=== PATIENT | female | born 1990 | race Caucasian/White ===

== ENCOUNTER 2016-08-05 10:05 | Emergency (ER) | payer BC, OTHER ==
[~2016-08-05 10:05] MED LIST: IBUP600 PO; OXYC1SOL5 PO; PRENCAP6 PO
--- NOTE | 2016-08-05 11:09 | PD ---
HPI Chief Complaint back ache, nausea/vomiting, cramping abdominal pain Date Seen: August 05, 2016 Travel History International Travel<30 Days: No Contact w/Intl Traveler<30Days: No Known Affected Area: No History of Present Illness HPI This is a 26y/o at 30w5d who presented to the [facility] with reports of abdominal discomfort since 11pm, and nausea with 3 episodes of vomiting today. + back pain, denies vaginal bleeding, contractions or leakage of fluid with reports of active movements. She states she ate a bbq sandwhich last night, her ate the same thing and is fine. No sick contacts at home, but her daughter does go to daycare. care with Dr. Rome, complicated by: 1. Previous c/s, desires TOLAC 2.Varicella nonimmune Para: 1 : 2 History Past Medical History Medical History: Denies Significant Hx Obstetric History Obstetric History 10/2014 Primary c/s Female 7lb6oz, NFRHT at 10cm, nuchal times 3 Past Surgical History Surgical History: No Previous Surgery Family History Family History: Negative Social History Alcohol Use: No Tobacco Use: No Substance Abuse: No Allergies-Medications (Allergen,Severity, Reaction): Coded Allergies: No Known Allergies (Unverified , 10/30/14) Home Meds Active Scripts Oxycodone W/ Acetaminophen (Oxycodone/Acetaminophen 5-325 mg/5Ml)1 Tab Tab1 Tab PO Q4H PRN (PAIN SCALE 3 TO 5) #30 TAB Ref 0 Prov:Janes Russell MD 11/02/14 Ibuprofen (Motrin 600 Mg Tab)600 Mg Shu393 Mg PO Q6H PRN ( CRAMPING) # 30 TAB Ref 0 Prov:Erum Santos CNM VISUAL EDUCATOR 11/02/14 Reported Medications Mv & Min W/Fe Fumarat ( 1) Cap1 Cap PO 10/30/14 Review of Systems Except as stated in HPI: all other systems reviewed are Neg Physical Exam Narrative GENERAL: Well-nourished, well-developed patient. SKIN: Warm and dry. HEAD: Normocephalic and atraumatic. EYES: No scleral icterus. No injection or drainage. ENT: No nasal drainage noted. Mucous membranes pink. Airway patent. NECK: Supple, trachea midline. No JVD. CARDIOVASCULAR: Regular rate and rhythm without murmurs, gallops, or rubs. RESPIRATORY: Breath sounds equal bilaterally. No accessory muscle use. BREASTS: Bilateral exam showed no masses , no retractions, no nipple discharge. ABDOMEN/GI: Abdomen soft, non-tender, bowel sounds present, no rebound, no guarding Gravid to 30 weeks size Fundal Height: 32 GENITOURINARY: External Genitalia: VE deferred Uterine Contractions: + irritability on the monitor initially, then subsided FHT's: Category: 1, appropriate for gestational age, very active fetus EXTREMITIES: No cyanosis or edema. BACK: Nontender without obvious deformity. No CVA tenderness. NEUROLOGICAL: Awake and alert. Motor and sensory grossly within normal limits. Five out of 5 muscle strength in all muscle groups. Normal speech. Data Data Vital Signs Reviewed: Yes Orders Vital Signs (Adult) .ON ADMISSION (08/05/16 11:03) ^ Labor Status (08/05/16 11:03) Urinalysis - C+S If Indicated (08/05/16 11:03) ^ Non Stress Test (08/05/16 11:03) Labs Laboratory Tests Test 08/05/16 10:20 Urine Color YELLOW Urine Turbidity CLEAR Urine pH 8.0 Urine Specific [place] 1.018 Urine Protein TRACE mg/dL Urine Glucose (UA) NEG mg/dL Urine Ketones NEG mg/dL Urine Occult Blood NEG Urine Nitrite NEG Urine Bilirubin NEG Urine Urobilinogen LESS THAN 2.0 MG/DL Urine Leukocyte Esterase NEG Urine RBC LESS THAN 1 /hpf Urine WBC 1 /hpf Urine Squamous Epithelial 2 /hpf Cells Urine Bacteria RARE /hpf Urine Mucus FEW /lpf Microscopic Urinalysis Comment CULT NOT INDICATED MDM Medical Record Reviewed: Yes Interpretation(s) 26y/o at 30w5d, with nausea/vomiting. -reassuring status -no evidence of PTL Plan -Pt tolerated water, crackers and peanut butter -felt some nausea, given Zofran 4mg ODT -after Zofran was able to tolerate apple juice -Rx for Zofran, d/c home with precautions: PTL, PHILLY diet. Diagnosis Diagnosis: Primary Impression: Nausea and vomiting during Disposition: DISCHARGE HOME Scripts Ondansetron (Zofran)4 Mg Tab4 Mg PO Q6HR PRN (NAUSEA OR VOMITING) #30 TAB Ref 1 Prov:Kalidas,Charmaine MD 08/05/16 Patient Instructions: Diet (GEN) Charmaine Rosario MD August 05, 2016 11:08
[2016-08-05 11:27] LABS: BACTERIA, URINE RARE /hpf; BLOOD, URINE NEG (NEG); GLUCOSE,URINE NEG (NEG); KETONE, URINE NEG (NEG); MUCUS URINE FEW /lpf (OCC); NITRITE,URINE NEG (NEG); SQUAMOUS EPITHELIAL CELL URINE 2 /hpf (0-5); URINE COLOR YELLOW (YELLW/STRAW)
[2016-08-05 11:32] LABS: COMMENT (UR) CULT NOT INDICATED; CULTURE IF INDICATED CULT NOT INDICATED
[2016-08-05] MEDS ORDERED: ONDANSETRON ODT 4 MG TAB PO ONE (12:00)
[2016-08-05] MEDS ORDERED: ZOFR4TAB PO (12:37)
== END 2016-08-05 13:11 | disposition home or self-care (01) ==
LOC: HOBED 10:05
DX: O21.0 Mild hyperemesis gravidarum (principal); Z3A.30 30 weeks gestation of pregnancy
CPT/HCPCS: 81001; 99284

== ENCOUNTER 2016-10-10 08:10 | Inpatient (IN) | payer BC ==
[2016-10-10] VITALS (40 sets, daily range): BP systolic 74–143; BP diastolic 35–89; PULSE 70–111; RESP 16–20; TEMP 97.4–98.9; O2SAT 99–100
[~2016-10-10 08:10] MED LIST changes: +ZOFR4TAB PO
[2016-10-10] MEDS ORDERED: LACTATED RINGER'S 1000 ML INJ 1,000 ML IV PRN (08:54)
--- NOTE | 2016-10-10 08:54 | HHI.HP ---
HPI Chief Complaint Contractions Date Seen: Oct 10, 2016 Travel History International Travel<30 Days: No Contact w/Intl Traveler<30Days: No Known Affected Area: No History of Present Illness HPI Patient 26-year-old white female previous now at 40 weeks gestation complains of contractions and desires delivery if possible. She has no leakage of fluid or bleeding. Contractions are regular every 2-3 minutes eyes she describes them as painful heart rate tracing is reactive. Patient sees Dr. Rome at [facility] for care Para: 1 : 2 History Obstetric History Obstetric History 1 for distress Past Surgical History Narrative Surgical Social History Alcohol Use: No Tobacco Use: No Substance Abuse: No Allergies-Medications (Allergen,Severity, Reaction): Coded Allergies: No Known Allergies (Unverified , 10/30/14) Home Meds Active Scripts Ondansetron (Zofran)4 Mg Tab4 Mg PO Q6HR PRN (NAUSEA OR VOMITING) #30 TAB Ref 1 Prov:Charmaine Rosario MD 08/05/16 Oxycodone W/ Acetaminophen (Oxycodone/Acetaminophen 5-325 mg/5Ml)1 Tab Tab1 Tab PO Q4H PRN (PAIN SCALE 3 TO 5) #30 TAB Ref 0 Prov:Janes Russell MD 11/02/14 Ibuprofen (Motrin 600 Mg Tab)600 Mg Ing314 Mg PO Q6H PRN ( CRAMPING) # 30 TAB Ref 0 Prov:Erum Santos CNM TOOL DISTRIBUTOR 11/02/14 Reported Medications Mv & Min W/Fe Fumarat ( 1) Cap1 Cap PO 10/30/14 Review of Systems General / Constitutional: No: Fever, Weight Gain, Chills, Other Eyes: No: Diploplia, Blurred Vision, Visual changes, Pain, Photophobia HENT: No: Headaches, Vertigo, Lightheadedness Cardiovascular: No: Irregular Rhythm, Chest Pain or Discomfort, Palpitations, Tachycardia, Syncope, Varicosities, Edema, Cyanosis Respiratory: No: Cough, Short of Breath, Other Gastrointestinal: No: Nausea, Vomiting, Diarrhea Genitourinary: No: Decreased Urinary Output, Oliguria Musculoskeletal: No: Limited ROM, Weakness, Cramping, Edema, Pain Skin: No Rash, No Itching, No Dryness, No Lumps, No Change in Pigmentation, No Change in Nails, No Alopecia, No Lesions Neurologic: No: Weakness, Dizziness, Syncope, Focal Abnormalities, Coordination Problem, Headache, Slurred Speech, Seizures Psychiatric: No: Depression, Suicidal Ideations, Homicidal Ideation Endocrine: No: Heat Intolerance, Cold Intolerance, Polydipsia, Polyuria, Other Physical Exam Vital Signs Date Time Temp Pulse Resp B/P Pulse Ox O2 Delivery O2 Flow Rate FiO2 10/10/16 08:31 98.9 20 10/10/16 08:31 95 127/78 Narrative GENERAL: Well-nourished, well-developed patient. SKIN: Warm and dry. HEAD: Normocephalic and atraumatic. EYES: No scleral icterus. No injection or drainage. ENT: No nasal drainage noted. Mucous membranes pink. Airway patent. NECK: Supple, trachea midline. No JVD. CARDIOVASCULAR: Regular rate and rhythm without murmurs, gallops, or rubs. RESPIRATORY: Breath sounds equal bilaterally. No accessory muscle use. BREASTS: Bilateral exam showed no masses , no retractions, no nipple discharge. ABDOMEN/GI: Abdomen soft, non-tender, bowel sounds present, no rebound, no guarding Gravid to [-40] weeks size Fundal Height: [40-] GENITOURINARY: External Genitalia: intact and normal in appearance BUS glands: [-] Cervix: [-] Dilatation: [4-] Effacement: [60-] Station: [-3] Presentation: [-vtx] Membranes: [intact ] Uterine Contractions: [q 2 min-] FHT's: Category: [1-] Baseline: [-133] Reactive: [-yes] Variability: [-mod] Decels: [-none] EXTREMITIES: No cyanosis or edema. BACK: Nontender without obvious deformity. No CVA tenderness. NEUROLOGICAL: Awake and alert. Motor and sensory grossly within normal limits. Five out of 5 muscle strength in all muscle groups. Normal speech. Data Data Orders Vital Signs (Adult) .ON ADMISSION (10/10/16 08:30) ^ Labor Status (10/10/16 08:30) ^ Non Stress Test (10/10/16 08:30) ^ Hydration (10/10/16 08:30) Assessment/Plan Assessment and Plan Patient is a 26-year-old white female previous now at 40 weeks gestation presents complaining of contractions. Patient denies bleeding or ruptured membranes. Baby is active. heart rate tracing is reactive. Contractions every 2 minutes. Patient's cervix is 4 cm 60% and -3 vertex and she states that when she was checked recently she was 3 cm. Patient desires vaginal after she understands risk and benefits that procedure was considered safe the uterine rupture rate is less than 1%. Plan to admit patient for labor management will notify Dr. Latricia Byrd,Jose C Rebolledo II, MD Oct 10, 2016 08:54
[2016-10-10] MEDS ORDERED: LIDOCAINE HCL 1% 50 ML VIAL I-DERMAL PRN (09:00)
[2016-10-10] MEDS ORDERED: SODIUM CHLORID 0.9% 500 ML INJ 500 ML IV PRN (09:00)
[2016-10-10] MEDS ORDERED: MINERAL OIL 10 ML VIAL TOPICAL PRN (09:00)
[2016-10-10] MEDS ORDERED: LIDOCAINE HCL 1% 50 ML VIAL INFIL PRN (09:00)
[2016-10-10] MEDS ORDERED: OXYTOCIN 30 UNITS-500ML PREMIX 500 ML IV ONE ×2 (09:00→14:45)
[2016-10-10] MEDS ORDERED: CITRIC ACID-SODIUM CITRATE LIQ 30 ML UDC PO SCH (09:00)
[2016-10-10] MEDS ORDERED: SODIUM CHLOR 0.9% 1000 ML INJ 1,000 ML IV PRN (09:14)
[2016-10-10] MEDS ORDERED: LACTATED RINGER'S 1000 ML INJ 1,000 ML IV SCH ×2 (09:30→19:33)
[2016-10-10 09:32] LABS: AUTOMATED NEUTROPHIL # 8.7 TH/MM3 (1.8-7.7); BASOPHIL % 0.3 % (0.0-2.0); EOSINOPHIL % 0.3 % (0.0-4.0); HEMATOCRIT 38.6 % (35.0-46.0); HEMO FLAGS DIFF FINAL; LYMPHOCYTE # 1.4 TH/MM3 (1.0-4.8); MEAN CELL VOLUME 83.5 FL (80.0-100.0); MEAN CORPUSCULAR HEMOGLOBIN 28.8 PG (27.0-34.0); MEAN CORPUSCULAR HGB CONC 34.5 % (32.0-36.0); MONO % 5.9 % (0.0-8.0); NEUT % 80.5 % (16.0-70.0); PLATELET COUNT 154 TH/MM3 (150-450); RED BLOOD COUNT 4.63 MIL/MM3 (4.00-5.30); RED CELL DISTRIBUTION WIDTH 13.5 % (11.6-17.2); WHITE BLOOD COUNT 10.8 TH/MM3 (4.0-11.0)
[2016-10-10 09:35] LABS: BLOOD, URINE NEG (NEG); GLUCOSE,URINE NEG (NEG); KETONE, URINE NEG (NEG); NITRITE,URINE NEG (NEG); PH, URINE 7.5 (5.0-8.5); SQUAMOUS EPITHELIAL CELL URINE 1 /hpf (0-5); URINE COLOR YELLOW (YELLW/STRAW)
[2016-10-10 09:38] LABS: COMMENT (UR) CULT NOT INDICATED; CULTURE IF INDICATED CULT NOT INDICATED
[2016-10-10] MEDS ORDERED: PENICILLIN G POTASSIUM INJ 5,000,000 UNITS in SODIUM CHLORIDE 0.9% INJ 100 ML IV ONE (10:30)
[2016-10-10] MEDS ORDERED: OXYTOCIN 30 UNITS/NS 500ML PREMIX IV SCH (11:00)
[2016-10-10] MEDS ORDERED: fentaNYL 2MCG-BUPIV 0.125% INJ 100 ML ONE (11:28)
--- NOTE | 2016-10-10 11:57 | PD.LABORPN ---
Subjective Subjective feeling pressure & contractions q3-4 min, requesting epidural Objective Vital Signs Vital Signs Date Time Temp Pulse Resp B/P Pulse Ox O2 Delivery O2 Flow Rate FiO2 10/10/16 11:33 97.8 18 10/10/16 11:16 77 129/71 10/10/16 11:00 73 128/78 10/10/16 10:45 80 120/77 10/10/16 10:40 74 121/85 10/10/16 10:01 77 135/89 10/10/16 08:31 98.9 20 10/10/16 08:31 95 127/78 Objective Pelvic Exam: Cervix: [mid] Dilatation: [6] Effacement: [90] Station: [-2 to -3] Presentation: [vtx] Membranes:AROM'd clear this check, IUPC placed Uterine Contractions: [q2-3 min] FHT's: Category: [I] Baseline: [14s-150s] Reactive: [y] Variability: [y] Decels: [n] Assessment/Plan Problem List: (1) Encounter for trial of labor (2) Term Assessment and Plan 26 yo at 40w1d admit for labor, pt desires trial of labor, h/o for distress 1) TOLAC: r/b/a d/w pt, consents signed, aware of risk of ; AROM'd this check, clear, IUPC placed, pitocin at 2, continued to augment as needed, get epidural as desired 2) GBS + on PCN 3) h/o CD for distress 4) status: vtx, female, EFW 8-8.5Kayla Dodd MD Oct 10, 2016 11:57
[2016-10-10] MEDS ORDERED: TERBUTALINE INJ 1 MG/ML AMP ONE (13:22)
[2016-10-10] MEDS ORDERED: OXYTOCIN 10 UNIT/ML AMP ONE (13:27)
[2016-10-10] MEDS ORDERED: ceFAZolin INJ 1,000 MG VIAL ONE (13:40)
[2016-10-10 14:16] LABS: BLOOD GAS BASE EXCESS -1.6 mmol/L (-2-2); BLOOD GAS O2 HGB SATURATION 21 % (90-100); CORD BLOOD GAS HCO3 24 mmol/L (21-29); CORD BLOOD GAS PCO2 55 mmHG (34-78); CORD BLOOD GAS PH 7.27 (7.14-7.42); CORD BLOOD GAS PO2 16 mmHG (3.0-40.0); DRAW SITE CORD BLOOD; STAT YES
--- NOTE | 2016-10-10 14:37 | PD.OB.DELI ---
Procedure Note Section Procedure Pre Op Diagnosis: (1) Non-reassuring heart rate or rhythm affecting management of mother (2) Encounter for trial of labor (3) Term Post Op Diagnosis: (1) Non-reassuring heart rate or rhythm affecting management of mother (2) Encounter for trial of labor (3) Term (4) S/P repeat low transverse Performed by Kayla Rome MD Head Turbine Operator Surgeon: King Livingston MD Procedure: Repeat Low Transverse Sec Indication for delivery: Nonreassuring heart tracing Informed consent obtained: For anesthesia, For procedure Confirmed correct: Patient, Procedure, Site, Time-out taken Anesthesia: Epidural Medication prior to procedure: As documented in eMAR Monitoring during procedure: Blood pressure monitoring, ekg monitor, Pulse oximetry Urinary catheter: ml urine output (700), Other (was already in place as part of the labor process) Sterile preparation: Duraprep, In usual fashion, With drapes to expose affected area Position: Supine with wedge to right side Operative Features Skin Incision: Pfannenstiel Uterine Incision: Low transverse w/knife / scissors Membranes Ruptured: Previously, Appearance of fluid (clear) Presentation: Vertex Delivery of : Uneventful : Female One Minute : 9 Five Minute : 9 Weight: 8#5oz Status of : Viable, Cord blood, Nursery present Placenta delivered: Intact Medications: Antibiotics (preop Ancef 2g) Estimated blood loss: 500 mL Procedure tolerated: Well Maternal Condition: Stable Condition: Stable Procedure in detail see dictated op note for full details Kayla Rome MD Oct 10, 2016 14:37
[2016-10-10] MEDS ORDERED: MORPHINE SULFATE PF 10 MG/10 ML VIAL ONE (14:41)
[2016-10-10] MEDS ORDERED: oxyCODONE/ACETAMINOPHEN 5 MG/325 MG TAB PO PRN ×2 (14:45)
[2016-10-10] MEDS ORDERED: ACETAMINOPHEN 325 MG TAB PO PRN (14:45)
[2016-10-10] MEDS ORDERED: SIMETHICONE 80 MG CHEWABLE TAB PO PRN (14:45)
[2016-10-10] MEDS ORDERED: SODIUM CHLORIDE 0.9% FLUSH 10 ML FLUSH IV FLUSH PRN (14:45)
[2016-10-10] MEDS ORDERED: ONDANSETRON HCL 4 MG/2 ML VIAL IV PUSH PRN (14:45)
[2016-10-10] MEDS ORDERED: SODIUM CHLORIDE 0.9% FLUSH 10 ML FLUSH IV FLUSH SCH (14:45)
[2016-10-10] MEDS ORDERED: ZOLPIDEM TARTRATE 5 MG TAB PO PRN (14:45)
[2016-10-10] MEDS: ACETAMINOPHEN 1000 MG/100 ML VIAL IV ONE ×2 (14:45→16:45)
[2016-10-10] MEDS ORDERED: KETOROLAC TROMETHAMINE 60 MG/2 ML (IM) VIAL IM PRN (14:45)
--- NOTE | 2016-10-10 14:46 | PD ---
History of Present Illness Date Seen: Oct 10, 2016 Time Seen: 13:20 History of Present Illness called to see patient for FHR deceleration. Pt attempting TOLAC. epidural in place. when I arrived to room, nurses had patient in knee/chest position, O2 face mask on. Pitocin was discontinued. Cervix 6-7 cm by RN exam. I ordered terbutaline 0.25 mg SQ x 1. FHR baseline 125 with good variability. FHR down to 60s x 3 minutes, trended up to 90s-100s x [address] Rome notified, and decision made to proceed with repeat delivery. I escorted patient to OR to begin while Dr. Rome en route. King Livingston MD Oct 10, 2016 14:46
[2016-10-10] MEDS ORDERED: KETOROLAC TROMETHAMINE 30 MG/ML (IVP) VIAL ONE (14:58)
[2016-10-10] MEDS ORDERED: PENICILLIN G POTASSIUM INJ 2,500,000 UNITS in SODIUM CHLORIDE 0.9% INJ 100 ML IV SCH (15:00)
[2016-10-10] MEDS ORDERED: ACETAMINOPHEN 1000 MG/100 ML VIAL IV ONE (16:35)
[2016-10-10] MEDS ORDERED: EPIDURAL-DIPHENHYDRAMINE HCL 50 MG CAP PO PRN (19:15)
[2016-10-10] MEDS ORDERED: EPIDURAL-NO SYSTEMIC NARCOTICS PRN (19:15)
[2016-10-10] MEDS ORDERED: EPIDURAL-DO NOT ADMINISTER ANTICOAGULANTS PRN (19:15)
[2016-10-10] MEDS ORDERED: EPIDURAL-NALOXONE HCL 0.4 MG/ML AMP IV PRN (19:15)
[2016-10-10] MEDS ORDERED: EPIDURAL-DIPHENHYDRAMINE HCL 50 MG/ML VIAL IV PUSH PRN (19:15)
[2016-10-11 00:34] VITALS: BP 121/79; PULSE 80; RESP 18; TEMP 98.5
[2016-10-11] MEDS ORDERED: OXYTOCIN 30 UNITS-500ML PREMIX 500 ML IV PRN (00:45)
[2016-10-11 04:10] VITALS: BP 122/80; PULSE 74; RESP 18; TEMP 98.4
[2016-10-11 05:57] LABS: BASOPHIL % 0.2 % (0.0-2.0); HEMATOCRIT 33.9 % (35.0-46.0); HEMO FLAGS DIFF FINAL; LYMPH % 8.5 % (9.0-44.0); LYMPHOCYTE # 1.2 TH/MM3 (1.0-4.8); MEAN CELL VOLUME 84.3 FL (80.0-100.0); MEAN CORPUSCULAR HEMOGLOBIN 28.5 PG (27.0-34.0); MEAN CORPUSCULAR HGB CONC 33.8 % (32.0-36.0); MONO % 5.3 % (0.0-8.0); PLATELET COUNT 146 TH/MM3 (150-450); RED BLOOD COUNT 4.02 MIL/MM3 (4.00-5.30); RED CELL DISTRIBUTION WIDTH 13.7 % (11.6-17.2); WHITE BLOOD COUNT 13.9 TH/MM3 (4.0-11.0)
[2016-10-11] MEDS: IBUPROFEN 600 MG TAB PO PRN ×3 (06:03→18:33)
[2016-10-11] MEDS: DOCUSATE SODIUM 50 MG/SENNA 8.6 MG TAB PO PRN (06:03)
[2016-10-11 08:00] VITALS: BP 113/69; PULSE 76; RESP 16; TEMP 98.1
[2016-10-11 12:00] VITALS: BP 112/66; PULSE 80; RESP 16; TEMP 97.8
--- NOTE | 2016-10-11 13:15 | HHI.OB ---
Subjective Post Operative Day: 1 Remarks doing well, has voided, passing flatus. carlene po. pain well controlled. Objective Vitals/I&O Vital Signs Date Time Temp Pulse Resp B/P Pulse Ox O2 Delivery O2 Flow Rate FiO2 10/11/16 12:00 97.8 10/11/16 12:00 80 16 112/66 10/11/16 08:00 98.1 76 16 113/69 10/11/16 04:10 98.4 10/11/16 04:10 74 18 122/80 10/11/16 00:34 98.5 10/11/16 00:34 80 18 121/79 10/10/16 19:50 97.6 16 10/10/16 19:50 76 124/75 10/10/16 16:47 18 10/10/16 16:13 118/82 10/10/16 16:13 97.4 79 18 10/10/16 15:35 97.9 10/10/16 15:30 112/64 10/10/16 15:30 83 16 99 10/10/16 15:23 81 109/58 99 10/10/16 15:23 16 10/10/16 15:09 98 16 109/55 100 10/10/16 14:54 19 100 10/10/16 14:54 86 108/53 10/10/16 14:54 16 10/10/16 14:42 97.6 86 16 115/57 100 10/10/16 13:25 92 10/10/16 13:20 91 142/65 10/10/16 13:20 98 10/10/16 13:15 77 10/10/16 13:15 77 130/69 Result Diagram: 10/11/16 0508 Objective Remarks GENERAL: Well-nourished, well-developed patient. CARDIOVASCULAR: Regular rate and rhythm without murmurs, gallops, or rubs. RESPIRATORY: Breath sounds equal bilaterally. No accessory muscle use. ABDOMEN/GI: Abdomen soft, non-tender, bowel sounds present. Incision: Clean, dry and intact. Fundus: Firm, non-tender at umbilicus. GENITOURINARY: Light to moderate bleeding. EXTREMITIES: No cyanosis or edema, non-tender, without signs of DVT. Medications and IVs Current Medications Medications (Trade) Dose Ordered Sig/Jennyfer Route Start Time Stop Time Status Last Admin (Lr 1000 ml Inj) 1,000 ml @ 100 mls/hr Q10H IV 10/10/16 19:33 10/11/16 15:32 10/11/16 04:05 (NS Flush) 2 ml BID IV FLUSH 10/10/16 14:45 (NS Flush) 2 ml UNSCH PRN IV FLUSH 10/10/16 14:45 (Mylicon Chew) 80 mg QID PRN PO 10/10/16 14:45 (Tylenol) 650 mg Q6H PRN PO 10/10/16 14:45 (Motrin) 600 mg Q6H PRN PO 10/10/16 14:45 10/11/16 12:24 (Toradol Inj) 30 mg Q6H PRN IM 10/10/16 14:45 10/11/16 14:44 10/10/16 15:00 (Percocet 5-325 Mg) 1 tab Q4H PRN PO 10/10/16 14:45 (Percocet 5-325 Mg) 2 tab Q4H PRN PO 10/10/16 14:45 (Torie-Colace) 2 tab Q12H PRN PO 10/10/16 14:45 10/11/16 06:03 (Ambien) 5 mg HS PRN PO 10/10/16 14:45 (M-M-R Ii Inj) 0.5 ml ONCE ONCE SQ 10/11/16 16:00 10/11/16 16:01 (Boostrix Inj) 0.5 ml ONCE ONCE IM 10/11/16 16:00 10/11/16 16:01 (Zofran Inj) 4 mg Q6H PRN IV PUSH 10/10/16 14:45 Miscellaneous Information NO SYSTEMIC NARCOTICS TO BE GIVEN FO... UNSCH PRN .XX 10/10/16 19:15 10/11/16 19:14 (Narcan Inj) 0.4 mg UNSCH PRN IV 10/10/16 19:15 10/11/16 19:14 (Benadryl Inj) 25 mg Q6H PRN IV PUSH 10/10/16 19:15 10/11/16 19:14 (Benadryl) 50 mg Q6H PRN PO 10/10/16 19:15 10/11/16 19:14 Miscellaneous Information ALL NURSING DEPARTMENTS UNSCH PRN .XX 10/10/16 19:15 10/11/16 19:14 Assessment/Plan Problem List: (1) Encounter for trial of labor (2) Term Assessment and Plan Patient is a 26-year-old white female s/p repeat at 40 weeks POD 1 doing well, cont routine care Genesis Abdalla MD Oct 11, 2016 13:15
--- NOTE | 2016-10-11 15:30 | MP ---
cc: FAINA WILLIAMSON M.D. DATE OF SURGERY: 10/10/2016. PREOPERATIVE DIAGNOSIS: 1. Intrauterine of 40 weeks and 1 day. 2. Spontaneous labor. 3. Desired trial of labor after . 4. Non-reassuring heart tones. POSTOPERATIVE DIAGNOSIS: 1. Intrauterine of 40 weeks and 1 day. 2. Spontaneous labor. 3. Desired trial of labor after . 4. Non-reassuring heart tones. 5. Postoperative day number zero. OPERATIVE PROCEDURE PERFORMED: Repeat low transverse . SURGEON: Faina Williamson MD. PIPE TESTING TECHNICIAN SURGEON: nAna Livingston MD. TYPE OF ANESTHESIA: Epidural. ESTIMATED BLOOD LOSS: 500 mL. IV FLUID REPLACEMENT: 1200 mL. URINE OUTPUT: 700 mL of clear urine draining in the Bautista bag at the end of the procedure. PROPHYLAXIS: Ancef 2 grams was given preoperatively. The patient had been on IV penicillin due to GBS positive status during labor. SCDs were also on and functioning throughout the entire case. INTRAOPERATIVE FINDINGS: A vigorous viable female with Apgars of 9 and 9 and weight of 8 pounds, 5 ounces. The infant was in the vertex position. Normal uterus, fallopian tubes and ovaries. Minimal scar tissue from previous . INDICATIONS FOR THE PROCEDURE: Eliza Krishna is a 26-year-old 2 now para 2-0-0-2 who has been seen and cared for throughout her with the only complication is a history of a delivery. The patient desired a trial of labor. She came in in active labor and as was augmented as needed on the morning of the October 10 at around 6-7 cm the patient had bradycardia. Pitocin was turned off. Oxygen was administered. The patient was repositioned and terbutaline was administered. heart tones slowly recovered but continued to have persistent decelerations and bradycardia despite interventions. Due to remote from delivery and non-reassuring heart tones, decision was made for repeat . DESCRIPTION OF THE PROCEDURE IN DETAIL: After reviewing the informed consent, the patient was taken to the operating suite where a time-out was performed to identify the patient, planned procedure and any known allergies to drugs or drug products. The patient was then placed in dorsal supine position as epidural was already in place as part of the labor process. The abdomen and perineum were then prepped and draped in normal sterile fashion. Bautista catheter was also already in place as part of labor process. A Pfannenstiel type skin incision was made with a scalpel and carried down to the underlying layer of fascia with the Bovie. Fascia was incised in midline. The incision was extended laterally with sharp dissection using Darnell scissors. Superior aspect of the fascial incision was elevated with Brennon clamps and rectus muscles dissected off sharply with Darnell scissors. Kochers were then moved inferiorly on the fascia and rectus muscles were again dissected off sharply. Rectus muscles were then in the midline. Peritoneum was identified and entered sharply with Metzenbaum scissors. Incision was extended superiorly and inferiorly with good visualization of intra-abdominal contents. Bladder blade was placed. A bladder flap was made. A low transverse uterine incision was made with a scalpel. Amniotic sac had already been ruptured with clear fluid noted during labor process. The 's head was grasped, elevated, flexed out through the incision. The rest of the body easily delivered and infant was immediately crying upon delivery. Cord was doubly clamped and cut. Cord segment and cord blood sample were taken. The baby was handed off to the awaiting nursery staff. The placenta was then delivered using gentle cord traction and fundal massage. The uterus was then exteriorized and cleared of all clots and debris with sterile moist lap sponges. Hysterotomy was repaired in a double layer using #1 chromic, first in a running locked layer then in an imbricating fashion. Posterior cul-de-sac was then irrigated copiously with warm sterile saline. Uterus was returned to the abdomen. Gutters were irrigated as well. Excellent hemostasis was noted at the repaired hysterotomy. Peritoneum was then closed in a running layer with 2-0 chromic. Fascia was closed in running layer with #1 Vicryl. Subcutaneous tissue was irrigated and hemostasis was ensured with the Bovie. A series of interrupted sutures using 2-0 chromic were used to close the subcutaneous space. Skin was closed in subcuticular fashion using 4-0 Monocryl. Skin was cleaned and dried. Steri-Strips were placed as was a pressure dressing. The procedure was concluded at this point. The patient tolerated the procedure well without complication. DISPOSITION: The patient's estimated length of stay is two to three postoperative days. Infant is nursery status. MD AFTAB Guzman /2:37 PM /3:23 PM [facility]
[2016-10-11] MEDS ORDERED: DIPHTH/TETANUS/ACEL PERTUSSIS (BOOSTER) 0.5 ML VIAL/PFS IM ONE (16:00)
[2016-10-11] MEDS ORDERED: MEASLES, MUMPS, RUBELLA VACCINE 0.5 ML VIAL SQ ONE (16:00)
[2016-10-11 20:00] VITALS: BP 114/61; PULSE 87; RESP 20; TEMP 97.8
[2016-10-12] MEDS: IBUPROFEN 600 MG TAB PO PRN ×4 (00:43→19:09)
--- NOTE | 2016-10-12 02:39 | HHI.DCPOC ---
Discharge Care Plan Diagnosis: (1) S/P repeat low transverse Your Health Problems Are: delivery Report Symptoms to Your Doctor -Temperature above 100.5 degrees -Redness, of incision or excessive or foul smelling drainage -Unusual pain or calf pain -Increased vaginal bleeding -Painful or difficulty urinating -Feelings of extreme sadness or anxiety after 2 weeks Goals to Promote Your Health * To prevent worsening of your condition and complications * To maintain your health at the optimal level Directions to Meet Your Goals Take your medications as prescribed Follow your dietary instruction Follow activity as directed Ensure plenty of rest for recovery Drink fluids for hydration Keep your appointments as scheduled Take your immunizations and boosters as scheduled If your symptoms worsen call your PCP, if no PCP go to Urgent Care Center or Emergency Room Smoking is Dangerous to Your Health. Avoid second hand smoke Call the 24-hour crisis hotline for domestic abuse at Genesis Abdalla MD Oct 12, 2016 02:39
--- NOTE | 2016-10-12 02:39 | HHI.OB ---
Subjective Post Operative Day: 2 Remarks doing well in general, believes she overexerted herself yesterday and feels a little tired. Objective Vitals/I&O Vital Signs Date Time Temp Pulse Resp B/P Pulse Ox O2 Delivery O2 Flow Rate FiO2 10/11/16 20:00 97.8 87 20 114/61 10/11/16 12:00 97.8 10/11/16 12:00 80 16 112/66 10/11/16 08:00 98.1 76 16 113/69 10/11/16 04:10 98.4 10/11/16 04:10 74 18 122/80 Result Diagram: 10/11/16 0508 Objective Remarks GENERAL: Well-nourished, well-developed patient. CARDIOVASCULAR: Regular rate and rhythm without murmurs, gallops, or rubs. RESPIRATORY: Breath sounds equal bilaterally. No accessory muscle use. ABDOMEN/GI: Abdomen soft, non-tender, bowel sounds present. Incision: Clean, dry and intact. Fundus: Firm, non-tender at umbilicus. GENITOURINARY: Light to moderate bleeding. EXTREMITIES: No cyanosis or edema, non-tender, without signs of DVT. Medications and IVs Current Medications Medications (Trade) Dose Ordered Sig/Jennyfer Route Start Time Stop Time Status Last Admin (NS Flush) 2 ml BID IV FLUSH 10/10/16 14:45 (NS Flush) 2 ml UNSCH PRN IV FLUSH 10/10/16 14:45 (Mylicon Chew) 80 mg QID PRN PO 10/10/16 14:45 (Tylenol) 650 mg Q6H PRN PO 10/10/16 14:45 (Motrin) 600 mg Q6H PRN PO 10/10/16 14:45 10/12/16 00:43 (Percocet 5-325 Mg) 1 tab Q4H PRN PO 10/10/16 14:45 (Percocet 5-325 Mg) 2 tab Q4H PRN PO 10/10/16 14:45 (Torie-Colace) 2 tab Q12H PRN PO 10/10/16 14:45 10/11/16 06:03 (Ambien) 5 mg HS PRN PO 10/10/16 14:45 (Zofran Inj) 4 mg Q6H PRN IV PUSH 10/10/16 14:45 Assessment/Plan Problem List: (1) Encounter for trial of labor (2) Term Assessment and Plan Patient is a 26-year-old white female s/p repeat at 40 weeks POD 2 doing well, cont routine care Discharge Planning today or tomorrow, based on status and improved pain control Genesis Abdalla MD Oct 12, 2016 02:39
[2016-10-12] MEDS ORDERED: IBUP-232 PO (02:41)
[2016-10-12] MEDS ORDERED: OXYC1TAB63 PO (02:41)
[2016-10-12 08:30] VITALS: BP 121/81; PULSE 72; RESP 16; TEMP 98
[2016-10-12] MEDS: DOCUSATE SODIUM 50 MG/SENNA 8.6 MG TAB PO PRN ×2 (13:10→13:13)
[2016-10-12 20:10] VITALS: BP 124/64; PULSE 72; RESP 18; TEMP 97.5
[2016-10-13] MEDS: DOCUSATE SODIUM 50 MG/SENNA 8.6 MG TAB PO PRN (01:50)
[2016-10-13] MEDS: IBUPROFEN 600 MG TAB PO PRN ×2 (01:50→08:12)
[2016-10-13 07:45] VITALS: BP 115/74; PULSE 70; RESP 16; TEMP 98
== END 2016-10-13 10:28 | disposition home or self-care (01) | DRG 766 ==
LOC: HOBED 08:10 → H2EB 09:14 → H1EA 16:02
PROVIDERS: ADMIT Obstetrics & Gynecology; ATTEND Obstetrics & Gynecology
PROC: 10D00Z1 Extraction of Products of Conception, Low, Open Approach (ICD-10-PCS; principal; 2016-10-10)
PROC: 10907ZC Drainage of Amniotic Fluid, Therapeutic from Products of Conception, Via Natural or Artificial Opening (ICD-10-PCS; 2016-10-10)
PROC: 10H07YZ Insertion of Other Device into Products of Conception, Via Natural or Artificial Opening (ICD-10-PCS; 2016-10-10)
DX: O76 Abnormality in fetal heart rate and rhythm complicating labor and delivery (principal); O99.824 Streptococcus B carrier state complicating childbirth; O66.41 Failed attempted vaginal birth after previous cesarean delivery; O34.211 Maternal care for low transverse scar from previous cesarean delivery; Z3A.40 40 weeks gestation of pregnancy; Z37.0 Single live birth
CPT/HCPCS: 59025; 81001; 82805; 85025; 86850; 86900; 86901; J0131; J0690; J1885; J2274; J2540; J2590; J3105; J7120